=== PATIENT | female | born 1980 | race Caucasian/White ===

== ENCOUNTER 2018-06-12 14:31 | Emergency (ER) | payer OTHER ==
[2018-06-12 15:24] VITALS: BP 103/66; PULSE 89; RESP 16; TEMP 98.4; O2SAT 100
--- NOTE | 2018-06-12 16:51 | ED PDOC ---
HPI: Skin/Bite Injury Time Seen by Provider: 06/12/18 15:36 Chief Complaint (Nursing): Breast Problem Chief Complaint (Provider): Breast Soreness History Per: Patient, Leather Sorter (Kazakh #[id number]) History/Exam Limitations: no limitations Onset/Duration Of Symptoms: Days (x3 weeks) Current Symptoms Are (Timing): Still Present Additional Complaint(s): 38 year old female presents to the ED for evaluation of bilateral breast soreness for the past three weeks with no associated redness, swelling, or nipple discharge. Patient is with child and also currently eight weeks , but notes she is not breast feeding and has not followed up with anyone for this yet. Denies abdominal pain and vaginal bleeding. Pt. denies any personal or family history of breast/uterine/ovarian CA. PMD: none provided Past Medical History Reviewed: Historical Data, Nursing Documentation, Vital Signs Vital Signs: Last Vital Signs Temp 98.4 F 06/12/18 15:21 Pulse 89 06/12/18 15:21 Resp 16 06/12/18 15:21 BP 103/66 06/12/18 15:21 Pulse Ox 100 06/12/18 15:21 - Medical History PMH: No Chronic Diseases - Surgical History Surgical History: No Surg Hx - Family History Family History: States: Unknown Family Hx - Social History Current smoker - smoking cessation education provided: No Alcohol: None Drugs: Denies - Immunization History Hx Tetanus Toxoid Vaccination: No Hx Influenza Vaccination: No Hx Pneumococcal Vaccination: No - Home Medications Home Medications: Ambulatory Orders Medication Instructions Recorded Naproxen [Anaprox DS] 1 tab PO Q12 PRN #20 tab 11/12/15 - Allergies Allergies/Adverse Reactions: Allergies Allergy/AdvReac Type Severity Reaction Status Date / Time No Known Allergies Allergy Verified 06/12/18 15:20 Review of Systems ROS Statement: Except As Marked, All Systems Reviewed And Found Negative Gastrointestinal: Negative for: Abdominal Pain Genitourinary Female: Negative for: Vaginal Bleeding Musculoskeletal: Positive for: Other (bilateral breast soreness) Physical Exam - Reviewed Nursing Documentation Reviewed: Yes Vital Signs Reviewed: Yes - Physical Exam Appears: Positive for: No Acute Distress Skin: Positive for: Normal Color, Warm, Dry. Negative for: Rash Neck: Positive for: Normal, Painless ROM, Supple Cardiovascular/Chest: Positive for: Regular Rate, Rhythm, Chest Non Tender, Other (Breasts: minimal diffuse tenderness to bilateral breasts with no erythema, induration, fluctuance, masses appreciated, nipple discharge, skin changes) Respiratory: Positive for: Normal Breath Sounds. Negative for: Respiratory Distress Gastrointestinal/Abdominal: Positive for: Normal Exam, Soft. Negative for: Tenderness Lymphatic: Negative for: Other (axillary lymphadenopathy) Neurologic/Psych: Positive for: Alert, Oriented (x3). Negative for: Motor/Sensory Deficits - ECG O2 Sat by Pulse Oximetry: 100 (RA) Pulse Ox Interpretation: Normal Medical Decision Making Medical Decision Making: Time: 1644 Initial Impression: breast pain in Initial Plan: --Discussed with patient through oracle forms developer that soreness is most likely related to early , and there are no signs of infection / masses on exam. She is advised to use warm compresses, take Tylenol for pain, and follow up with obgyn clinic. Scribe Attestation: Documented by Mayra Davey, acting as a scribe for Beverly Soto PA-C. Provider Scribe Attestation: All medical record entries made by the Scribe were at my direction and personally dictated by me. I have reviewed the chart and agree that the record accurately reflects my personal performance of the history, physical exam, medical decision making, and the department course for this patient. I have also personally directed, reviewed, and agree with the discharge instructions and disposition. Disposition - Clinical Impression Clinical Impression: Pain of breast - Disposition [facility]errals[facility] [[facility]] Disposition: Routine/Home Disposition Time: 17:00 Condition: STABLE Additional Instructions: warm compresses. take tylenol as needed for moderate pain Instructions: Mastalgia (DC), Symptoms Forms: [employer] ([place]an) Print Language: FINNISH
== END 2018-06-12 17:14 | disposition home or self-care (01) ==
LOC: H.ER 14:31
DX: N64.4 Mastodynia (principal)

== ENCOUNTER 2018-06-16 05:06 | Emergency (ER) | payer OTHER ==
--- NOTE | 2018-06-16 05:36 | ED PDOC ---
HPI: Female Pain Time Seen by Provider: 06/16/18 05:33 Chief Complaint (Nursing): Abdominal Pain Chief Complaint (Provider): Female Genitourinary History Per: Patient History/Exam Limitations: no limitations Onset/Duration Of Symptoms: Hrs (x3) Current Symptoms Are (Timing): Still Present Quality Of Discomfort: Cramping Additional Complaint(s): 38 y/o female with a PMHx of and is currently 8 weeks presents to the ED for evaluation of vaginal bleeding, onset 3 hours prior to arrival. Patient reports of noticing a small clot while at home and a large clot on arrival to the ED that appears to resemble tissue. Patient reports bleeding is associated with lower abdominal cramping. PMD: Abnormal Vaginal Bleeding: Yes : 3 Para: 2 Past Medical History Reviewed: Historical Data, Nursing Documentation, Vital Signs Vital Signs: Last Vital Signs Temp 98.3 F 06/16/18 05:11 Pulse 88 06/16/18 05:11 Resp 16 06/16/18 05:11 BP 101/66 06/16/18 05:11 Pulse Ox 100 06/16/18 05:11 - Medical History PMH: No Chronic Diseases - Surgical History Surgical History: No Surg Hx - Family History Family History: States: No Known Family Hx - Social History Current smoker - smoking cessation education provided: No Alcohol: None Drugs: Denies - Immunization History Hx Tetanus Toxoid Vaccination: No Hx Influenza Vaccination: No Hx Pneumococcal Vaccination: No - Home Medications Home Medications: Ambulatory Orders Medication Instructions Recorded Naproxen [Anaprox DS] 1 tab PO Q12 PRN #20 tab 11/12/15 - Allergies Allergies/Adverse Reactions: Allergies Allergy/AdvReac Type Severity Reaction Status Date / Time No Known Allergies Allergy Verified 06/12/18 15:20 Review of Systems ROS Statement: Except As Marked, All Systems Reviewed And Found Negative Gastrointestinal: Positive for: Abdominal Pain Genitourinary Female: Positive for: Vaginal Bleeding Physical Exam - Reviewed Nursing Documentation Reviewed: Yes Vital Signs Reviewed: Yes - Physical Exam Appears: Positive for: Uncomfortable Head Exam: Positive for: ATRAUMATIC, NORMOCEPHALIC Skin: Positive for: Normal Color, Warm, Dry Eye Exam: Positive for: Normal appearance, EOMI, PERRL Neck: Positive for: Normal, Painless ROM, Supple Cardiovascular/Chest: Positive for: Regular Rate, Rhythm. Negative for: Murmur Respiratory: Positive for: Normal Breath Sounds. Negative for: Respiratory Distress Gastrointestinal/Abdominal: Positive for: Normal Exam, Soft. Negative for: Te nderness Back: Positive for: Normal Inspection. Negative for: L CVA Tenderness, R CVA Tenderness, Vertebral Tenderness Extremity: Positive for: Normal ROM. Negative for: Pedal Edema, Deformity Neurologic/Psych: Positive for: Alert, Oriented. Negative for: Motor/Sensory Deficits - Laboratory Results Result Diagrams: 06/16/18 05:40 - ECG O2 Sat by Pulse Oximetry: 100 (RA) Pulse Ox Interpretation: Normal Medical Decision Making Medical Decision Making: Time: 526 Impression: 38 y/o female with vaginal bleeding and Plan: -- ABO/RH Type -- Beta-HCG, Quantitative -- ED Urine -- CBC with differentials -- Heplock Insertion -- Urinalysis -- Pelvis/Transvag US Time: 0700 -- Patient endorsed to Dr. Florence, pending ED Workup, reassessment and final ER disposition. Scribe Attestation: Documented by Karri Zarate, acting as a scribe for Bryant Jiménez MD. Provider Scribe Attestation: All medical record entries made by the Scribe were at my direction and personally dictated by me. I have reviewed the chart and agree that the record accurately reflects my personal performance of the history, physical exam, medical decision making, and the department course for this patient. I have also personally directed, reviewed, and agree with the discharge instructions and disposition. Disposition - Clinical Impression Clinical Impression: Vaginal bleeding during - Patient ED Disposition Is Patient to be Admitted: Transfer of Care - Disposition Disposition: Transfer of Care Disposition Time: 07:00 Condition: FAIR Forms: [employer] (Kenyan) Patient Signed Over To: Charis Florence Handoff Comments: pending ED Workup, reassessment and final ER disposition.
[2018-06-16 06:18] LABS: BASO % 0.2 % (0.0-2.0); EOS # 0.1 K/uL (0.0-0.7); HEMOGLOBIN 12.7 g/dL (12.0-16.0); LYMPH # 0.7 K/uL (1.0-4.3); LYMPH % 6.9 % (20.0-40.0); MEAN CELL VOLUME 84.5 fl (81.0-99.0); MEAN CORPUSCULAR HEMOGLOBIN 28.8 pg (27.0-31.0); MEAN CORPUSCULAR HGB CONC 34.1 g/dL (33.0-37.0); MEAN PLATELET VOLUME 10.2 fl (7.2-11.7); MONO # 0.4 K/uL (0.0-0.8); NEUT % 87.9 % (50.0-75.0); PLATELET COUNT 154 K/uL (130-400); WHITE BLOOD COUNT 10.2 K/uL (4.8-10.8)
[2018-06-16 06:40] LABS: URINE BILIRUBIN SMALL (NEGATIVE); URINE BLOOD LARGE (NEGATIVE); URINE CLARITY TURBID (Clear); URINE COLOR RED (YELLOW); URINE GLUCOSE (UA) NEG (NEGATIVE); URINE LEUKOCYTE ESTERASE NEG Leu/uL (Negative); URINE PROTEIN >=500 mg/dL (NEGATIVE); URINE UROBILINOGEN 0.2-1.0 mg/dL (0.2-1.0)
--- NOTE | 2018-06-16 07:10 | ED PDOC ---
- Laboratory Results Result Diagrams: 06/16/18 05:40 Lab Results: Urine Color Red (YELLOW) 06/16/18 05:40 Urine Clarity Turbid (Clear) 06/16/18 05:40 Urine pH 7.0 (5.0-8.0) 06/16/18 05:40 Ur Specific [place] 1.027 (1.003-1.030) 06/16/18 05:40 Urine Protein >=500 mg/dL (NEGATIVE) 06/16/18 05:40 Urine Glucose (UA) Neg mg/dL (NEGATIVE) 06/16/18 05:40 Urine Ketones Negative mg/dL (NEGATIVE) 06/16/18 05:40 Urine Blood Large (NEGATIVE) 06/16/18 05:40 Urine Nitrate Negative (NEGATIVE) 06/16/18 05:40 Urine Bilirubin Small (NEGATIVE) 06/16/18 05:40 Urine Urobilinogen 0.2-1.0 mg/dL (0.2-1.0) 06/16/18 05:40 Ur Leukocyte Esterase Neg Marybeth/uL (Negative) 06/16/18 05:40 Urine RBC (Auto) 8400 /hpf (0-3) H 06/16/18 05:40 Urine Microscopic WBC 19 /hpf (0-5) H 06/16/18 05:40 Beta HCG, Quant 2492.20 mIU/mL 06/16/18 05:40 - ECG O2 Sat by Pulse Oximetry: 100 (RA) Medical Decision Making Medical Decision Making: Time: 0700 Patient endorsed to provider from Bryant Jiménez MD. Pending US, Type and Screen, reassessment and final ED disposition. Accession No. : [id number] Patient Name / ID : KEANU MEHTA / [id number] Exam Date : 06/16/2018 08:20:22 ( Approved ) Study Comment : Sex / Age : F / 38Y Creator : Deyanira Ramos MD Dictator : Deyanira Ramos MD Meat Blender : Clinical Nutrition Manager : Deyanira Ramos MD Approver2 : Report Date : 06/16/2018 09:20:42 My Comment : Date of service: 06/16/2018 Indication: vag bld in preg Comparison: None available Technique: Real-time transabdominal pelvic ultrasound was performed. In addition a transvaginal pelvic ultrasound was necessary to better depict pelvic anatomy. Findings: The uterus measures approximately 8.6 x 6.8 x 5.4 cm. Anteverted. Endometrium measures approximately 1.2 cm in diameter. No evidence of intraute rine gestational sac. Nabothian cysts. Cervix length measures approximately 4.7 cm. The right ovary measures 4.2 x 2.9 x 2.1 cm and contains 1.9 x 1.7 x 2.2 cm complex follicle/cyst.. The left ovary is not visualized. Blood flow is demonstrated to the right ovary. Impression: No evidence of intrauterine gestational sac. If indeed the patient is based on serum beta HCG values, the sonographic findings represent either: Very early IUP; embryonic demise; ectopic gestation. Follow-up with serial quantitative serum beta HCG measurements and post OBGYN follow-up as clinically indicated, since ectopic gestation cannot be excluded based only on sonographic findings. The left ovary is not visualized. 2.2 cm complex follicle/cyst, right ovary. 09:[address] Loaiza, recommends repeat beta in 2 days. Findings and plan discussed with patient using supervisor floor assembly (Voyce #[id number]). Scribe Attestation: Documented by Ebenezer Vanegas, acting as a scribe for Charis Florence MD. Provider Scribe Attestation: All medical record entries made by the Scribe were at my direction and personally dictated by me. I have reviewed the chart and agree that the record accurately reflects my personal performance of the history, physical exam, medical decision making, and the department course for this patient. I have also personally directed, reviewed, and agree with the discharge instructions and disposition. Disposition - Clinical Impression Clinical Impression: Threatened , UTI in - POA Present On Arrival: None - Disposition Referrals: [facility] [Outside] Disposition: Routine/Home Disposition Time: 09:45 Condition: STABLE Additional Instructions: REGRESE AQUI EN 2 BARRIOS PARA REPETIR LA PRUEBA DE MICHEL. TYLENOL PARA DOLOR. Prescriptions: Nitrofurantoin Macrocrystals [Macrobid] 100 mg PO BID #9 cap Pnv No.95/Ferrous Fum/Folic AC [ Vitamin Tablet] 1 each PO DAILY #30 tablet Instructions: Threatened Miscarriage, Urinary Tract Infection, Adult (DC), Miscarriage (DC), Bleeding With Forms: [employer] (Citizen Of [place]) Print Language: PARAGUAYAN
[2018-06-16 07:31] LABS: EOSINOPHIL 2 % (0-7); LYMPHOCYTE 8 % (20-50); MONOCYTE 6 % (0-10); NEUTROPHIL 84 % (42-75); PLATELET ESTIMATE NORMAL (NORMAL); TOTAL CELLS COUNTED 100
--- NOTE | 2018-06-16 09:24 | US ---
Date of service: 06/16/2018 Indication: vag bld in preg Comparison: None available Technique: Real-time transabdominal pelvic ultrasound was performed. In addition a transvaginal pelvic ultrasound was necessary to better depict pelvic anatomy. Findings: The uterus measures approximately 8.6 x 6.8 x 5.4 cm. Anteverted. Endometrium measures approximately 1.2 cm in diameter. No evidence of intrauterine gestational sac. Nabothian cysts. Cervix length measures approximately 4.7 cm. The right ovary measures 4.2 x 2.9 x 2.1 cm and contains 1.9 x 1.7 x 2.2 cm complex follicle/cyst.. The left ovary is not visualized. Blood flow is demonstrated to the right ovary. Impression: No evidence of intrauterine gestational sac. If indeed the patient is based on serum beta HCG values, the sonographic findings represent either: Very early IUP; embryonic demise; ectopic gestation. Follow-up with serial quantitative serum beta HCG measurements and post OBGYN follow-up as clinically indicated, since ectopic gestation cannot be excluded based only on sonographic findings. The left ovary is not visualized. 2.2 cm complex follicle/cyst, right ovary.
[2018-06-16 09:49] VITALS: BP 105/58; PULSE 82; RESP 18; TEMP 97.7
[2018-06-16 09:54] VITALS: O2SAT 100
== END 2018-06-16 10:30 | disposition home or self-care (01) ==
LOC: H.ER 05:06
DX: O20.0 Threatened abortion (principal); Z3A.08 8 weeks gestation of pregnancy; O23.40 Unspecified infection of urinary tract in pregnancy, unspecified trimester

== ENCOUNTER 2018-06-18 10:38 | Emergency (ER) | payer OTHER ==
[2018-06-18 10:42] VITALS: BMI 27.9
[2018-06-18 10:43] VITALS: BP 116/72; PULSE 71; RESP 17; TEMP 98.5; O2SAT 99
[2018-06-18 12:41] LABS: SQUAMOUS EPITHIAL 1 /hpf (0-5); URINE BILIRUBIN NEGATIVE (NEGATIVE); URINE BLOOD LARGE (NEGATIVE); URINE CLARITY CLEAR (Clear); URINE COLOR YELLOW (YELLOW); URINE GLUCOSE (UA) NEG (NEGATIVE); URINE LEUKOCYTE ESTERASE NEG Leu/uL (Negative); URINE PROTEIN 30 mg/dL (NEGATIVE); URINE UROBILINOGEN 0.2-1.0 mg/dL (0.2-1.0)
--- NOTE | 2018-06-18 13:06 | US ---
Date of service: 06/18/2018 PROCEDURE: OB Pelvic Ultrasound HISTORY: vag bleeding, 8 weeks LMP: 04/18/2018 suggesting gestation of 8 weeks 5 days. COMPARISON: Transvaginal obstetric ultrasound 06/16/2018. FINDINGS: UTERUS: Gestational sac: None clearly identified with endometrium unremarkable appearing measuring 6.0 mm thickness, homogeneous. Uterus measures 7.6 x 4.6 x 6.5 cm. Anteverted, normal in size and appearance. CERVIX: Measures 4.5 cm. Long and closed. Tiny nabothian cyst is identified 7 mm greatest dimension.. RIGHT OVARY: Measures 2.9 x 2.1 x 3.2 cm. A few scattered follicles identified with diminishing complex cyst or corpus luteum cyst previously measuring 1.9 x 1.7 x 2.2 cm, now measuring 1.6 x 1.3 x 1.1 cm. Normal flow. LEFT OVARY: Not identified. No suspicious adnexal mass or fluid collection appreciable. FREE FLUID: None. OTHER FINDINGS: None. IMPRESSION: Once again, there is no sonographic evidence suggest intrauterine gestation at this time. Consider missed accordingly. Ectopic gestation not identified but not completely excluded. Further clinical correlation advised. Nonvisualized viable intrauterine gestation is unlikely however correlation with serial beta HCG analysis and potential follow-up ultrasound is recommended. Diminishing complex cyst right ovary, smaller in size measuring 1.6 cm, previously measuring 2.2 cm greatest dimension previously.
[2018-06-18 13:13] LABS: BASO % 0.8 % (0.0-2.0); EOS # 0.4 K/uL (0.0-0.7); EOS % 6.8 % (0.0-4.0); LYMPH # 1.7 K/uL (1.0-4.3); LYMPH % 30.8 % (20.0-40.0); MEAN CELL VOLUME 84.2 fl (81.0-99.0); MEAN CORPUSCULAR HEMOGLOBIN 27.8 pg (27.0-31.0); MEAN PLATELET VOLUME 9.9 fl (7.2-11.7); MONO # 0.4 K/uL (0.0-0.8); NEUT % 54.6 % (50.0-75.0); NRBC % 0.2 % (0.0-0.0); RBC 4.69 Mil/uL (3.80-5.20); RED CELL DISTRIBUTION WIDTH 14.2 % (11.5-14.5); WHITE BLOOD COUNT 5.5 K/uL (4.8-10.8)
--- NOTE | 2018-06-18 13:14 | ED PDOC ---
HPI: Female Pain Time Seen by Provider: 06/18/18 11:03 Chief Complaint (Nursing): Female Genitourinary Chief Complaint (Provider): Vaginal bleeding in setting of History Per: Patient History/Exam Limitations: no limitations Onset/Duration Of Symptoms: Days Current Symptoms Are (Timing): Still Present Associated Symptoms: denies: Fever, Chills, Nausea, Vomiting, Diarrhea, Urinary Symptoms Additional History Per: Patient Additional Complaint(s): 38yo female, EGA of 8 weeks, comes to ER for a return visit due to abdominal cramping and continued vaginal bleeding with passage of clots. Patient was seen 2 days ago, had a US done, which was inconclusive at that time and was instructed to follow up for repeat bloodwork and ultrasound. Patient denies any tissue passage but states the bleeding is continuous and the abdominal pain is worse. She denies any history of ectopic pregnancies or STI. No additional complaints. Abnormal Vaginal Bleeding: Yes : 1 Past Medical History Reviewed: Historical Data, Nursing Documentation, Vital Signs Vital Signs: Last Vital Signs Temp 98.5 F 06/18/18 10:42 Pulse 71 06/18/18 10:42 Resp 17 06/18/18 10:42 BP 116/72 06/18/18 10:42 Pulse Ox 99 06/18/18 10:42 - Medical History PMH: No Chronic Diseases - Surgical History Surgical History: No Surg Hx - Family History Family History: States: No Known Family Hx - Immunization History Hx Tetanus Toxoid Vaccination: No Hx Influenza Vaccination: No Hx Pneumococcal Vaccination: No - Home Medications Home Medications: Ambulatory Orders Medication Instructions Recorded Naproxen [Anaprox DS] 1 tab PO Q12 PRN #20 tab 11/12/15 Nitrofurantoin Macrocrystals 100 mg PO BID #9 cap 06/16/18 [Macrobid] Pnv No.95/Ferrous Fum/Folic AC 1 each PO DAILY #30 tablet 06/16/18 [ Vitamin Tablet] - Allergies Allergies/Adverse Reactions: Allergies Allergy/AdvReac Type Severity Reaction Status Date / Time No Known Allergies Allergy Verified 06/18/18 10:47 Review of Systems ROS Statement: Except As Marked, All Systems Reviewed And Found Negative Constitutional: Negative for: Fever, Chills Cardiovascular: Negative for: Chest Pain Respiratory: Negative for: Shortness of Breath Gastrointestinal: Positive for: Abdominal Pain Genitourinary Female: Positive for: Vaginal Discharge, Vaginal Bleeding Physical Exam - Reviewed Nursing Documentation Reviewed: Yes Vital Signs Reviewed: Yes - Physical Exam Appears: Positive for: Non-toxic, No Acute Distress Head Exam: Positive for: ATRAUMATIC, NORMAL INSPECTION, NORMOCEPHALIC Skin: Positive for: Normal Color Eye Exam: Positive for: Normal appearance Neck: Positive for: Supple Cardiovascular/Chest: Positive for: Regular Rate, Rhythm Respiratory: Positive for: Normal Breath Sounds Gastrointestinal/Abdominal: Positive for: Soft, Other (no palpable uterus). Negative for: Tenderness, Mass, Guarding, Rebound Back: Positive for: Normal Inspection Extremity: Positive for: Normal ROM. Negative for: Deformity Neurologic/Psych: Positive for: Alert, Oriented. Negative for: Motor/Sensory Deficits - Laboratory Results Result Diagrams: 06/18/18 12:42 06/18/18 12:56 Lab Results: Urine Color Yellow (YELLOW) 06/18/18 12:28 Urine Clarity Clear (Clear) 06/18/18 12:28 Urine pH 8.0 (5.0-8.0) 06/18/18 12:28 Ur Specific [place] < 1.005 (1.003-1.030) 06/18/18 12:28 Urine Protein 30 mg/dL (NEGATIVE) 06/18/18 12:28 Urine Glucose (UA) Neg mg/dL (NEGATIVE) 06/18/18 12:28 Urine Ketones Negative mg/dL (NEGATIVE) 06/18/18 12:28 Urine Blood Large (NEGATIVE) 06/18/18 12:28 Urine Nitrate Negative (NEGATIVE) 06/18/18 12:28 Urine Bilirubin Negative (NEGATIVE) 06/18/18 12:28 Urine Urobilinogen 0.2-1.0 mg/dL (0.2-1.0) 06/18/18 12:28 Ur Leukocyte Esterase Neg Marybeth/uL (Negative) 06/18/18 12:28 Urine RBC (Auto) 7 /hpf (0-3) H 06/18/18 12:28 Urine Microscopic WBC 2 /hpf (0-5) 06/18/18 12:28 Ur Squamous Epith Cells 1 /hpf (0-5) 06/18/18 12:28 - ECG O2 Sat by Pulse Oximetry: 99 (RA) Pulse Ox Interpretation: Normal Medical Decision Making Medical Decision Making: Pelvic exam deferred due lack of HOUSEKEEPING AID bed R/o threatened Plan: -- Labs -- Urinalysis -- US OB 1st trimester -- Tylenol 650mg PO 1400 Labs reviewed, patient with HCG decrease from > 2000 to < 300 in 48 hours. Ultrasound reviewed and indicates no IUP or ectopic . Patient informed of miscarriage and instructed to follow up with OBGYN. Patient informed to return to ER if symptoms worsen or new symptoms arise. Scribe Attestation: Documented by Susie Faust acting as a scribe for Nadiya Browne MD Provider Attestation: All medical record entries made by the Scribe were at my direction and personally dictated by me. I have reviewed the chart and agree that the record accurately reflects my personal performance of the history, physical exam, medical decision making, and the department course for this patient. I have also personally directed, reviewed, and agree with the discharge instructions and disposition. Disposition - Clinical Impression Clinical Impression: Threatened - Disposition Disposition: Routine/Home Disposition Time: 14:02 Condition: STABLE Additional Instructions: Follow up with women's health clinic/operational intelligence analyst. Return to the emergency department if pain, bleeding, or other symptoms worsen. Instructions: Threatened Miscarriage (DC), Bleeding With (DC) Forms: [employer] (Kinyarwanda), [employer] (Urdu), [facility] School/Work Excuse Print Language: FINNISH
[2018-06-18 13:31] LABS: BLOOD UREA NITROGEN 11 mg/dl (7-17); CALCIUM 10.1 mg/dL (8.4-10.2); GFR NON-AFRICAN AMERICAN > 60
== END 2018-06-18 14:22 | disposition home or self-care (01) ==
LOC: H.ER 10:38
DX: O20.0 Threatened abortion (principal)